=== PATIENT | female | born 1980 | race Caucasian/White ===

== ENCOUNTER 2018-11-25 11:01 | Emergency (ER) | payer SELFPAY ==
[2018-11-25 11:02] VITALS: BP 118/84; PULSE 59; RESP 16; TEMP 32; O2SAT 100; BMI 27.4
--- NOTE | 2018-11-25 11:08 | EKG12_ITS ---
Test Reason : CP Blood Pressure : / mmHG Vent. Rate : 082 BPM Atrial Rate : 082 BPM P-R Int : 134 ms QRS Dur : 080 ms QT Int : 414 ms P-R-T Axes : 058 006 -09 degrees QTc Int : 483 ms Normal sinus rhythm with sinus arrhythmia Prolonged QT Abnormal ECG Confirmed by ABDIRIZAK GARCIA ([id number]), newspaper photo editor GAIL GRADY ([id number]) on 11/30/2018 9:13:19 AM Referred By: Confirmed By:ABDIRIZAK GARCIA
[2018-11-25] MEDS: 0.9% Normal Saline 1,000 ML 1000 ML IV (11:25)
[2018-11-25] MEDS: Ondansetron 4 MG/2 ML Vial IV (11:25)
[2018-11-25 12:01] VITALS: BP 96/83; PULSE 43; RESP 17; O2SAT 100
--- NOTE | 2018-11-25 12:01 | ED.VISSUMM ---
- ER Visit Summary Date of Service: 11/25/18 Chief Complaint: Nausea, vomiting, and chest pain History of Present Illness: The patient is a 37 F who presents with nausea, vomiting, and chest pain that began today. Patient states that she is unable to keep anything down today. Patient describes her pain as sharp. Patient states the pain is over the epigastric and substernal areas. Patient states nothing makes it better or worse. Patient states she is vomiting stomach contents. Patient denies any hematemesis or coffee-ground emesis. Patient does admit to some shortness of breath and a cough with green sputum. Patient also admits to some lightheadedness and palpitations. Physical Examination: Vital signs are stable. Patient is afebrile. Patient is in no acute distress. Oral mucosa is pink and moist. Neck is supple. Trachea is midline. There is no JVD noted. Heart was regular rate and rhythm. Lungs are clear and equal bilateral. Abdomen is soft. Bowel sounds are normal. There is epigastric tenderness. There is no rebound or guarding noted. Cranial nerves II through XII are intact. There are no focal motor or sensory deficits noted. Test Results: EKG showed normal sinus rhythm with a rate of 82. There are no acute ST or T wave changes noted. CBC shows a slight leukocytosis of 12.5. Comprehensive metabolic profile was essentially within normal limits. Urinalysis does not show any evidence of urinary tract infection. Troponin was normal. CTA of the chest was obtained and does not show any evidence of pulmonary embolism. CT scan of the abdomen and pelvis was obtained with IV contrast. There is no acute abnormality noted. Emergency Department Course and Treatment: Patient was given IV fluids and Zofran here. Patient still complained of some nausea and vomiting after this. Patient was given Phenergan. On repeat evaluation patient states her nausea was improving but was still present. Patient was given a repeat dose of Phenergan. Patient was instructed to follow-up with her primary care physician in 3 to 5 days. Patient was given a prescription for Phenergan suppositories. Patient was instructed to return if worse in any way. Patient was instructed to start with a liquid diet with frequent sips of small amounts of fluids. Patient was instructed to increase her diet to a bland diet and then to a regular diet as she starts to feel better. Patient understood and was agreeable with the plan. All questions were answered. Disposition: Discharge home Impression: Nausea and vomiting This note was generated with [employer] dictation software. It may contain incorrect words, spelling, and punctuation that were not noted in review of the chart prior to signing ED Disposition - Plan for ED Patient: Disposition: Home or Assisted Living Diagnosis: Nausea and vomiting Instructions: ED Nausea Vomiting Prescriptions: proMETHazine suppository [Phenergan Suppository] 25 mg RECTAL Q6H PRN PRN #6 suppos. PRN Reason: Nausea Referrals: Clark Alvarenga DO [Primary Care Provider] - 3-5 Days
[2018-11-25 12:06] LABS: Absolute Lymphocyte Count 3.32 X10^3/ul (0.83-4.51); Basophil# 0.03 X10^3/uL; Basophil% 0.2 % (0-1); Eosinophil# 0.27 X10^3/uL; Eosinophils% 2.2 % (0-5); Hematocrit 38.9 % (37-47); Hemoglobin 13.4 g/dl (12.0-15.0); Lymphocyte # 3.32 X10^3/ul (4.0); Lymphocyte % 26.5 % (19-41); Mean Corp Hgb Conc 34.4 g/gl (32-36); Mean Corpuscular Hgb 31.9 pg (27.0-32.0); Mean Corpuscular Volume 92.6 fL (81-99); Mean Platelet Vol. 9.9 fl (6.2-12.0); Monocyte# 0.87 X10^3/uL; Monocyte% 6.9 % (0-10); Neutrophil # 8.02 X10^3/uL (2.7-7.7); Neutrophil % 64.1 % (47-70); POSITIVE COUNT NO; POSITIVE DIFFERENTIAL NO; POSITIVE MORPHOLOGY NO; Platelet Count 334 K/mm3 (150-450); RBC Distribution Width CV 13.5 % (11.6-14.6); RBC Distribution Width SD 45.5 fl (35.1-43.9); White Blood Count 12.5 K/mm3 (4.4-11.0)
[2018-11-25 12:12] LABS: ALB/GLOB Ratio 1.2 RATIO (0.9-2.4); AST(SGOT) 30 U/L (15-37); Alanine Aminotransfer ALT/SGPT 39 U/L (13-56); Albumin, Serum 4.2 g/dL (3.2-5.0); Alkaline Phosphatase 76 U/L (45-117); Anion Gap 11 (5-15); BUN 10 mg/dL (7-18); BUN/Creat Ratio 10.9 RATIO (10-20); Calcium,Total 9.1 mg/dL (8.5-10.1); Chloride 107 mmol/L (98-107); Creatinine, Serum 0.92 mg/dL (0.55-1.02); EST Glomerular Filtration Rate 73 mL/min (>60); Est Glom Filt Rate - Afr Amer 88 mL/min (>60); Estimated Creatinine Clearance 78.38 ml/min; Globulin 3.4 g/dL (2.2-4.2); Glucose 156 mg/dL (74-106); Lipase 117 U/L (73-393); Potassium 3.5 mmol/L (3.5-5.1); Protein, Total 7.6 g/dL (6.4-8.2); Sodium Level 139 mmol/L (136-145)
--- NOTE | 2018-11-25 12:31 | EKG12_ITS ---
Test Reason : CP Blood Pressure : / mmHG Vent. Rate : 043 BPM Atrial Rate : 043 BPM P-R Int : 120 ms QRS Dur : 090 ms QT Int : 508 ms P-R-T Axes : 056 020 042 degrees QTc Int : 429 ms Marked sinus bradycardia with sinus arrhythmia Abnormal ECG Confirmed by ABDIRIZAK GARCIA ([id number]), science editor MICHELLE CHEN ([id number]) on 11/29/2018 2:08:38 PM Referred By: KELTON Confirmed By:ABDIRIZAK GARCIA
[2018-11-25] MEDS: proMETHazine 25 MG/ML Syringe 6.25 MG IV ×2 (12:58→16:46)
[2018-11-25] MEDS: 0.9% Normal Saline 1,000 ML IV.SOLN. 1000 ML IV (12:59)
[2018-11-25 13:00] VITALS: BP 121/96; PULSE 48; RESP 21; O2SAT 100
[2018-11-25 13:47] VITALS: TEMP 36.1
[2018-11-25 13:54] LABS: Red Blood Cells-Urine 0 SEEN /hpf (0-5)
[2018-11-25 14:05] LABS: Color, Urine Yellow (Yellow); Glucose, Dipstick Normal (Normal); Leukocyte Esterase-Dipstick 25 /ul (Negative); Nitrite-Dipstick Negative (Negative); Occult Blood-Urine Negative /ul (Negative); Protein-Dipstick 15 mg/dl (Negative); Specific Gravity, Urine 1.015 (1.002-1.030); Urine Bilirubin Dipstick 1 mg/dL (Negative); Urine Clarity Cloudy (Clear); Urine Urobilinogen 1 mg/dl (Normal)
[2018-11-25 14:06] LABS: Ketone-Dipstick 150 mg/dl (Negative)
[2018-11-25 14:09] LABS: Bacteria 2+ /hpf (None Seen); Hyaline Cast 0-5 SEEN /lpf (0-5); Mucous, Urine 1+ /hpf (<or=2+); Squamous Epithelial Cells - UA 10-25 SEEN /hpf (5-10); White Blood Cells 0-5 SEEN /hpf (0-5)
[2018-11-25 14:11] VITALS: BP 102/78; PULSE 43; RESP 19; TEMP 36.1; O2SAT 100
--- NOTE | 2018-11-25 15:21 | CT_ITS ---
STUDY: CT ABDOMEN AND PELVIS WITH CONTRAST REASON FOR EXAM: Female, 37 years old. Shortness of breath and pain RADIATION DOSAGE (If Supplied By Facility): DLP = ( 970.24 ) mGycm TECHNIQUE: Transaxial images were obtained from the dome of the diaphragm to the symphysis pubis without oral contrast. 100mL ml of Isovue 370 contrast was administered. Sagittal and coronal images were reconstructed. Individualized dose optimization techniques were used for this CT. COMPARISON: None. FINDINGS: The visualized lung bases are clear. The visualized portions of the heart and pericardium are within normal limits. The gallbladder has been removed. The liver is within normal limits. There are no suspicious hepatic lesions. The spleen is normal in size. There is a 2.6 x 2.1 cm low-density splenic lesion, likely representing a cyst or hemangioma The pancreas is within normal limits. The adrenal glands are within normal limits. There are no obstructing renal stones. There is no hydronephrosis. There are no focal renal lesions. Normal visualized stomach. There is no bowel obstruction or inflammation. The appendix is normal. The aorta is normal in caliber. There is no abdominal or pelvic free air, free fluid, fluid collection or lymphadenopathy. There are no destructive osseous lesions. CT/Abdomen/Pelvis W IV Cont ONLY IMPRESSION: No acute abdominal or pelvic pathology. Status post costectomy. Splenic hemangioma versus cyst. Electronically Signed: Abel Brooks, at 16:08 EDT Tel , Service support ,
--- NOTE | 2018-11-25 15:22 | CT_ITS ---
STUDY: CTA CHEST REASON FOR EXAM: Female, 37 years old. Shortness of breath RADIATION DOSAGE (If Supplied By Facility): CTDIvol = ( 10.76 ) mGy, DLP = ( 970.24 ) mGycm TECHNIQUE: The examination was performed with the intravenous administration of 100mL IV Isovue 370. Post-processing of the angiographic images was performed, with multiplanar reformation and 3D reconstruction. Individualized dose optimization techniques were used for this CT. COMPARISON: None. FINDINGS: Normal enhancement of the main pulmonary artery and right and left pulmonary arteries. Normal enhancement of the bilateral peripheral pulmonary arteries. There is no demonstrated pulmonary embolism. Normal thoracic aorta and visualized great vessels. There is no demonstrated aortic dissection. Normal heart and pericardium. Normal mediastinum. Normal hilar regions. Normal visualized trachea and bronchi. The lungs are well expanded. Normal pulmonary parenchyma. Normal pleura. Normal chest wall structures. Normal osseous structures. There is a splenic cyst versus hemangioma. CT/CTA Chest W/WO Contrast IMPRESSION: Normal CTA chest examination, without a demonstrated pulmonary embolism or arterial dissection. Splenic cyst versus hemangioma. Electronically Signed: Abel Brooks, at 16:11 EDT Tel , Service support ,
[2018-11-25 17:21] VITALS: BP 108/80; PULSE 48; RESP 16
== END 2018-11-25 17:22 | disposition home or self-care (01) ==
PROVIDERS: Emergency Provider Emergency Medicine; Family Provider Student in an Organized Health Care Education/Training Program; PCP Student in an Organized Health Care Education/Training Program
DX: R11.2 Nausea with vomiting, unspecified (principal)
CPT/HCPCS: 71275; 74177; 80053; 81001; 83690; 84484; 85025; 93005; 96361; 96374; 96375; 96376; 99284; J7030; Q9967; A4216; J2405

== ENCOUNTER 2023-05-24 17:12 | Emergency (ER) | payer MEDICAID, SELFPAY ==
[2023-05-24 17:15] VITALS: BP 141/95; PULSE 93; RESP 22; TEMP 36.6; O2SAT 97; BMI 23.9
--- NOTE | 2023-05-24 17:30 | CT_ITS ---
EXAM: CT HEAD WITHOUT INTRAVENOUS CONTRAST CLINICAL INDICATION: Pain TECHNIQUE: Multiple axial images were obtained of the head without intravenous contrast. This CT exam was performed using one or more of the following dose reduction techniques: automated exposure control, adjustment of the mA and/or kV according to patient size, and/or use of iterative reconstruction technique. RADIATION DOSE: CTDIvol = 44.99 mGy, DLP = 796.11 mGy-cm COMPARISON: 05.02.15 FINDINGS: BRAIN AND EXTRA-AXIAL SPACES: Unremarkable. No intra- or extra-axial hemorrhage. No evidence of acute infarct. No intracranial mass or mass effect. There is preservation of the powell/white matter interface. Posterior fossa structures are unremarkable. Ventricles are appropriate for age. No hydrocephalus. Basal cisterns are patent. BONES/JOINTS: Unremarkable. No discrete lytic or blastic abnormalities. SINUSES: Unremarkable as visualized. Clear. MASTOID AIR CELLS: Unremarkable. Clear. ORBITS: Visualized globes, extraocular muscles, optic nerves and retrobulbar fat appear unremarkable. CT/Brain/Head without Contrast IMPRESSION: Negative head/brain CT without intravenous contrast. Electronically Signed: Rome Grant MD at 18:35 EST ,
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
[2023-05-24 17:53] LABS: Absolute Lymphocyte Count 3.31 X10^3/uL (0.83-4.51); Absolute Neutrophil Count 4.8 X10^3/uL (2.0-7.7); Basophil# 0.05 X10^3/uL; Basophil% 0.5 % (0-1); Eosinophil# 0.33 X10^3/uL; Eosinophils% 3.6 % (0-5); Hematocrit 40.1 % (37-47); Hemoglobin 13.1 g/dL (12.0-15.0); Lymphocyte # 3.31 X10^3/ul (0.83-4.51); Lymphocyte % 36.1 % (19-41); Mean Corp Hgb Conc 32.7 g/dL (32-36); Mean Corpuscular Hgb 32.1 pg (27.0-32.0); Mean Corpuscular Volume 98.3 fL (81-99); Mean Platelet Vol. 8.7 fl (6.2-12.0); Monocyte# 0.58 X10^3/uL; Monocyte% 6.3 % (0-10); NRBC Flagged by Analyzer 0 % (0-5); Neutrophil # 4.81 X10^3/uL (2.7-7.7); Neutrophil % 52.5 % (47-70); Platelet Count 420 K/mm3 (150-450); RBC Distribution Width CV 13.3 % (11.6-14.6); RBC Distribution Width SD 48.8 fl (35.1-43.9); Red Blood Count 4.08 M/mm3 (4.2-5.4); White Blood Count 9.2 K/mm3 (4.4-11.0)
[2023-05-24] MEDS: Ketorolac 30 MG/ML Syringe IV (17:54)
[2023-05-24] MEDS: DiphenhydrAMINE 50 MG/ML Syringe 25 MG IV (17:54)
[2023-05-24] MEDS: proCHLORPERazine 10 MG/2 ML Vial IV (17:54)
[2023-05-24] MEDS: 0.9% Normal Saline (1000mL) 1,000 ML 999 ML IV (17:54)
[2023-05-24 18:06] LABS: Erythrocyte Sedimentation Rate 26 mm/hr (0-30)
[2023-05-24 18:10] LABS: Internal QC Validated? YES +Cl - CLEAR BKGD; Pregnancy, Serum, hCG Quali. NEGATIVE Negative
[2023-05-24 18:12] LABS: Anion Gap 7 (5-15); BUN 10 mg/dL (7-18); BUN/Creat Ratio 12.9 RATIO (10-20); CRP 3.45 mg/L (0.0-3.0); Calcium,Total 9.4 mg/dL (8.5-10.1); Chloride 109 mmol/L (98-107); Creatinine, Serum 0.78 mg/dL (0.55-1.02); EST Glomerular Filtration Rate 86 mL/min (>60); Est Glom Filt Rate - Afr Amer 104 mL/min (>60); Estimated Creatinine Clearance 84.55 ml/min; Glucose 93 mg/dL (74-106); Potassium 3.9 mmol/L (3.5-5.1); Sodium Level 143 mmol/L (136-145)
[2023-05-24 19:33] VITALS: BP 109/70; PULSE 71; RESP 15; O2SAT 99
== END 2023-05-24 19:36 | disposition home or self-care (01) ==
PROVIDERS: Emergency Provider Emergency Medicine; PCP Student in an Organized Health Care Education/Training Program; Visit Provider Emergency Medicine
DX: G43.909 Migraine, unspecified, not intractable, without status migrainosus (principal); F17.210 Nicotine dependence, cigarettes, uncomplicated
CPT/HCPCS: 70450; 80048; 84703; 85025; 85652; 86140; 96374; 96375; 99283; J7030; A4216

== ENCOUNTER 2023-05-29 21:37 | Emergency (ER) | payer MEDICAID, SELFPAY ==
[2023-05-29 21:37] VITALS: BP 113/98; PULSE 74; RESP 15; TEMP 36.6; O2SAT 98
[2023-05-29] MEDS: Ketorolac 15 MG/ML Vial IV (22:41)
[2023-05-29] MEDS: Metoclopramide 10 MG/2 ML Vial IV (22:41)
[2023-05-29] MEDS: 0.9% Normal Saline (1000mL) 1,000 ML 999 ML IV (22:41)
[2023-05-29] MEDS: DiphenhydrAMINE 50 MG/ML Syringe 25 MG IV (22:41)
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
[2023-05-29 23:07] LABS: Absolute Lymphocyte Count 2.95 X10^3/uL (0.83-4.51); Absolute Neutrophil Count 2.6 X10^3/uL (2.0-7.7); Basophil# 0.03 X10^3/uL; Basophil% 0.5 % (0-1); Eosinophil# 0.32 X10^3/uL; Eosinophils% 4.9 % (0-5); Hematocrit 37.3 % (37-47); Hemoglobin 12.2 g/dL (12.0-15.0); Lymphocyte # 2.95 X10^3/ul (0.83-4.51); Lymphocyte % 45.5 % (19-41); Mean Corp Hgb Conc 32.7 g/dL (32-36); Mean Corpuscular Hgb 32.2 pg (27.0-32.0); Mean Corpuscular Volume 98.4 fL (81-99); Mean Platelet Vol. 8.6 fl (6.2-12.0); Monocyte# 0.54 X10^3/uL; Monocyte% 8.3 % (0-10); NRBC Flagged by Analyzer 0 % (0-5); Neutrophil # 2.61 X10^3/uL (2.7-7.7); Neutrophil % 40.3 % (47-70); Platelet Count 410 K/mm3 (150-450); RBC Distribution Width CV 13.6 % (11.6-14.6); RBC Distribution Width SD 49.6 fl (35.1-43.9); Red Blood Count 3.79 M/mm3 (4.2-5.4); White Blood Count 6.5 K/mm3 (4.4-11.0)
[2023-05-29 23:25] LABS: ALB/GLOB Ratio 1.3 RATIO (0.9-2.4); AST(SGOT) 15 U/L (15-37); Alanine Aminotransfer ALT/SGPT 19 U/L (13-56); Albumin, Serum 3.9 g/dL (3.2-5.0); Alkaline Phosphatase 65 U/L (45-117); Anion Gap 4 (5-15); BUN 10 mg/dL (7-18); BUN/Creat Ratio 12.1 RATIO (10-20); Calcium,Total 8.9 mg/dL (8.5-10.1); Chloride 110 mmol/L (98-107); Creatinine, Serum 0.83 mg/dL (0.55-1.02); EST Glomerular Filtration Rate 80 mL/min (>60); Est Glom Filt Rate - Afr Amer 97 mL/min (>60); Glucose 99 mg/dL (74-106); Lipase 44 U/L (13-75); Potassium 3.5 mmol/L (3.5-5.1); Protein, Total 6.9 g/dL (6.4-8.2); Sodium Level 143 mmol/L (136-145)
[2023-05-29 23:46] LABS: Mucous, Urine 0 SEEN /hpf (<or=2+); Red Blood Cells-Urine 0 SEEN /hpf (0-5)
[2023-05-29 23:47] LABS: Internal QC Validated? YES +Cl - CLEAR BKGD; Pregnancy, Serum, hCG Quali. NEGATIVE Negative
[2023-05-29 23:57] LABS: Color, Urine Yellow (Yellow); Glucose, Dipstick Normal (Normal); Ketone-Dipstick Negative (Negative); Leukocyte Esterase-Dipstick 25 /ul (Negative); Nitrite-Dipstick Negative (Negative); Occult Blood-Urine Negative /ul (Negative); Protein-Dipstick 30 mg/dl (Negative); Specific Gravity, Urine 1.015 (1.002-1.030); Urine Bilirubin Dipstick Negative (Negative); Urine Clarity Clear (Clear); Urine Urobilinogen 1 mg/dl (Normal)
[2023-05-30 00:14] LABS: Amphetamine Urine VISTA NEGATIVE (<1000 ng/mL); Barbiturate Urine VISTA NEGATIVE (< 200 ng/mL); Benzodiazepine Urine VISTA NEGATIVE (< 200 ng/mL); Cocaine Urine VISTA NEGATIVE (< 300 ng/mL); Ecstacy Urine VISTA POSITIVE (< 500 ng/mL); Methadone Urine VISTA NEGATIVE (< 300 ng/mL); PCP Urine VISTA NEGATIVE (< 25 ng/mL); THC Urine VISTA POSITIVE (< 50 ng/mL); Vista UDS pH Range 7
[2023-05-30 00:15] LABS: Bacteria 1+ /hpf (None Seen); Squamous Epithelial Cells - UA 10-25 SEEN /hpf (5-10); White Blood Cells 0-5 SEEN /hpf (0-5)
[2023-05-30 00:16] LABS: Amorphous Sediment 2+
[2023-05-30 00:39] VITALS: RESP 14
== END 2023-05-30 00:41 | disposition home or self-care (01) ==
PROVIDERS: Emergency Provider Student in an Organized Health Care Education/Training Program; PCP Student in an Organized Health Care Education/Training Program; Visit Provider Student in an Organized Health Care Education/Training Program
DX: R51.9 Headache, unspecified (principal); F10.129 Alcohol abuse with intoxication, unspecified; R11.2 Nausea with vomiting, unspecified; F17.210 Nicotine dependence, cigarettes, uncomplicated; Z79.899 Other long term (current) drug therapy
CPT/HCPCS: 80053; 80307; 81001; 82077; 83690; 84703; 85025; 96374; 96375; 99283; J7030; A4216

== ENCOUNTER 2023-06-01 17:05 | Emergency (ER) | payer MEDICAID, SELFPAY ==
[2023-06-01 17:06] VITALS: BP 120/93; PULSE 87; RESP 20; TEMP 36.9; O2SAT 100; BMI 24.1
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
[2023-06-01] MEDS: DiphenhydrAMINE 50 MG/ML Syringe 25 MG IV (18:47)
[2023-06-01] MEDS: 0.9% Normal Saline (1000mL) 1,000 ML 999 ML IV (18:48)
[2023-06-01] MEDS: Ketorolac 30 MG/ML Syringe IV (18:48)
[2023-06-01] MEDS: dexAMETHasone 10 MG/ML Vial IV (18:49)
[2023-06-01] MEDS: proCHLORPERazine 10 MG/2 ML Vial 5 MG IV (18:50)
[2023-06-01 19:48] VITALS: BP 118/74; PULSE 81; RESP 16; O2SAT 99
== END 2023-06-01 19:50 | disposition home or self-care (01) ==
PROVIDERS: Emergency Provider Emergency Medicine; PCP Student in an Organized Health Care Education/Training Program; Visit Provider Emergency Medicine
DX: G43.909 Migraine, unspecified, not intractable, without status migrainosus (principal); F17.210 Nicotine dependence, cigarettes, uncomplicated
CPT/HCPCS: 96374; 96375; 99284; J7030; A4216